=== PATIENT | male | born 1965 | race Caucasian/White ===

== ENCOUNTER 2020-04-05 11:43 | Day surgery (SDC) | payer BC ==
[~2020-04-05] VITALS: Ht 177.8 cm; Wt 106.0 kg
[~2020-04-05 11:43] MED LIST: HYDCHL25 PO; JARDIANCE10 MG PO; LOSARTAN-HCTZ1 EAC1 PO; METF500C PO; PIOG30 PO; ROSU10TA PO; TRULICITY1.5 MG/0.1 SC
--- NOTE | 2020-04-05 12:41 | NUR ---
04/05/20 1241 LORE BANEGAS PT BOWEL PREP PLENVU
== END 2020-04-05 13:48 | disposition home or self-care (01) ==
LOC: ORSCSDS 11:43
PROVIDERS: Internal Medicine Gastroenterology
PROC: 0DBL8ZX Excision of Transverse Colon, Via Natural or Artificial Opening Endoscopic, Diagnostic (ICD-10-PCS; principal; 2020-04-05 13:00)
DX: Z12.11 Encounter for screening for malignant neoplasm of colon (principal); Z86.010 Personal history of colon polyps; D12.3 Benign neoplasm of transverse colon; K64.8 Other hemorrhoids; E78.00 Pure hypercholesterolemia, unspecified; K57.30 Diverticulosis of large intestine without perforation or abscess without bleeding; E11.9 Type 2 diabetes mellitus without complications; Z79.82 Long term (current) use of aspirin; Z79.84 Long term (current) use of oral hypoglycemic drugs; Z79.899 Other long term (current) drug therapy
CPT/HCPCS: 88305; J2704; J7120

== ENCOUNTER 2023-03-18 17:43 | Emergency (ER) | payer BC, OTHER ==
[~2023-03-18] VITALS: Ht 177.8 cm; Wt 104.3 kg
[2023-03-18 17:58] VITALS: BP 146/97
[2023-03-18] MEDS ORDERED: CEPH500 PO (19:27)
== END 2023-03-18 19:43 | disposition home or self-care (01) ==
LOC: ER 17:43
DX: S61.211A Laceration without foreign body of left index finger without damage to nail, initial encounter (principal); I10 Essential (primary) hypertension; E11.9 Type 2 diabetes mellitus without complications; Z79.84 Long term (current) use of oral hypoglycemic drugs; Z79.899 Other long term (current) drug therapy; W31.2XXA Contact with powered woodworking and forming machines, initial encounter
CPT/HCPCS: 20600; 73140; 99283-25